=== PATIENT | female | born 1995 | race Caucasian/White ===

== ENCOUNTER 2025-01-01 21:22 | Emergency (ER) | payer MEDICAID ==
[~2025-01-01] VITALS: Ht 160 cm; Wt 71.4 kg
[2025-01-01 21:49] LABS: BASOPHILS # (AUTO) 0.1 X10'3 (0-0.2); BASOPHILS % (AUTO) 0.6 % (0-1); EOSINOPHILS # (AUTO) 0.2 X10'3 (0-0.9); EOSINOPHILS % (AUTO) 2.4 % (0-6); HEMATOCRIT 43.8 % (35.0-45.0); HEMOGLOBIN 14.5 g/dl (12.0-16.0); LYMPHOCYTES # (AUTO) 3.4 X10'3 (1.1-4.8); LYMPHOCYTES % (AUTO) 33.4 % (21-51); MEAN CORPUSCULAR HEMOGLOBIN 27.9 PG (27.0-31.0); MEAN CORPUSCULAR HGB CONC 33.1 g/dL (33.0-36.5); MEAN CORPUSCULAR VOLUME 84.4 FL (78-98); MEAN PLATELET VOLUME 8.7 FL (7.4-10.4); MONOCYTES # (AUTO) 0.6 X10'3 (0-0.9); MONOCYTES % (AUTO) 6.1 % (2-12); NEUTROPHILS # (AUTO) 5.8 X10'3 (1.8-7.7); NEUTROPHILS % (AUTO) 57.5 % (42-75); PLATELET COUNT 315 X10'3 (140-440); RED CELL DISTRIBUTION WIDTH 13.4 % (11.5-14.5); WHITE BLOOD COUNT 10.1 X10'3 (4.5-11.0)
--- NOTE | 2025-01-01 21:59 | Physician Documentation ---
History of Present Illness Chief Complaint: Abdominal Pain Stated Complaint: ABD PAIN HPI This 29-year-old female presents to the ED with a complaint of nausea vomiting x1 day. States some of her symptoms were resolved at this point. Denies any abdominal pain History as above. Patient's pain has greatly improved in his now 08/22. Patient just took plan B and she feels that this may be related to that and she is curious if she is . Took ibuprofen earlier with some relief. Medication Reconciliation Allergies: Coded Allergies: Penicillins (Verified Allergy, Severe, 01/01/25) severe rxn as Review of Systems ROS All review of systems negative except as per HPI Physical Exam Vital Signs: Temperature: 98.4, Source: Temporal, Heart Rate: 72, Respiratory Rate: 14, BP: 109/73, Pulse Oximetry: 100, Weight: 71.400 Physical Exam General: Patient is awake, alert, oriented x4 in no acute distress and well appearing.~ Head: Normocephalic and atraumatic. Eyes: Conjunctival normal. EOMI. PERRL. ENT: Mucous membranes moist. Neck: Supple, trachea is midline. Chest: Clear to auscultation bilaterally without rales, rhonchi, or wheezes. There is no accessory muscle use or retractions. Cardiac: RRR without murmurs, gallops, or rubs. Abd: Soft, nondistended, mildly positive Grace's sign Progress Results/Orders Results/Orders Vital Signs 01/01/25 21:26 Temp 98.4 Pulse 72 Resp 14 B/P (MAP) 109/73 Pulse Ox 100 Laboratory Tests Test 01/01/25 21:38 White Blood Count 10.1 Red Blood Count 5.20 Hemoglobin 14.5 Hematocrit 43.8 Mean Corpuscular Volume 84.4 Mean Corpuscular Hemoglobin 27.9 Mean Corpuscular Hemoglobin Concent 33.1 Red Cell Distribution Width 13.4 Platelet Count 315 Mean Platelet Volume 8.7 Neutrophils (%) (Auto) 57.5 Lymphocytes (%) (Auto) 33.4 Monocytes (%) (Auto) 6.1 Eosinophils (%) (Auto) 2.4 Basophils (%) (Auto) 0.6 Neutrophils # (Auto) 5.8 Lymphocytes # (Auto) 3.4 Monocytes # (Auto) 0.6 Eosinophils # (Auto) 0.2 Basophils # (Auto) 0.1 CBC Comment Chemistry Comments Medical Decision Making Findings Patient presented to the emergency room for evaluation of abdominal pain as per HPI. Differentials include but are not limited to cholecystitis pancreatitis diverticulitis pancreatitis kidney stone therefore emergent labs ordered which were reassuring. Patient's pain is greatly improved. Offered ultrasound however patient would prefer to just go home. He had not feel she requires CT scan as I do not suspect infectious process at this time. Departure Disposition: HOME / SELF CARE / HOMELESS Impression: Primary Impression: Abdominal pain Condition: Improved Discharge Instructions: Abdominal Pain (Nonspecific) Referrals: NO PRIMARY CARE PROVIDER (PCP) Prescriptions Norgestimate-Ethinyl Estradiol (Sprintec 28 Day Tablet) 0.25 Mg-0.035 Mg Tablet 1 TAB PO DAILY, #1 BOXS Prov: RAJESH MORIN MD 01/02/25 Education Educated: Patient Educated regarding: diagnosis, treatment, need for follow up Signature Scribe Signature: g Attestation: The note accurately reflects work and decisions made by me.Rajesh Morin MD 01/02/25 00:36 Scribed for Emergency,Department by Gaby Bundy - [facility] . 01/01/25 23:57 GABY BUNDY NP Jan 01, 2025 21:58 RAJESH MORIN MD Jan 02, 2025 00:37
[2025-01-01 22:00] LABS: ALANINE AMINOTRANSFERASE 24 U/L (12-78); ALBUMIN 4.2 G/DL (3.4-5.0); ALBUMIN/GLOBULIN RATIO 1.2 (1.1-1.5); ALKALINE PHOSPHATASE 63 IU/L (46-116); ANION GAP 8 (8-16); ASPARTATE AMINO TRANSFERASE 16 U/L (10-37); BILIRUBIN,TOTAL 0.6 MG/DL (0.1-1.0); BLOOD UREA NITROGEN 10 MG/DL (7-18); BUN/CREATININE RATIO 10.2 (10.0-20.0); CALCIUM 9.3 MG/DL (8.5-10.1); CHLORIDE 103 MMOL/L (99-107); CREATININE 0.98 MG/DL (0.40-0.90); GLUCOSE 121 MG/DL (70-104); LIPASE 25 U/L (16-77); POTASSIUM 3.6 MMOL/L (3.5-5.1); SODIUM 138 MMOL/L (135-145); TOTAL CARBON DIOXIDE 27.3 MMOL/L (24-32); TOTAL PROTEIN 7.6 G/DL (6.4-8.2); eCRCL 71 ML/MIN; eGFR 68 ML/MIN
[2025-01-01 23:05] LABS: URINE HCG NEGATIVE (NEG)
[2025-01-01 23:08] LABS: BILIRUBIN,URINE NEGATIVE (Neg); CLARITY,URINE CLEAR (Clear); COLOR,URINE YELLOW (Yellow); GLUCOSE, URINE NEGATIVE (Neg); KETONES,URINE NEGATIVE (Neg); LEUKOCYTE ESTERASE ,URINE NEGATIVE (Neg); NITRITES, URINE NEGATIVE (Neg); OCCULT BLOOD,URINE NEGATIVE (Neg); PROTEIN,URINE NEGATIVE (Neg); UROBILINOGEN,URINE 0.2 E.U/dL (0.2-1.0)
[2025-01-01 23:10] LABS: UA COLLECTION TYPE CLN CATCH MIDSTREAM
[2025-01-02 00:14] VITALS: TEMP 98.4
[2025-01-02] MEDS ORDERED: NORG1TAB12 PO (00:36)
[2025-01-02 00:38] VITALS: BP 108/72; PULSE 53; RESP 16; O2SAT 98
== END 2025-01-02 00:43 | disposition home or self-care (01) ==
LOC: ER 21:23
DX: R10.9 Unspecified abdominal pain (principal); R11.2 Nausea with vomiting, unspecified; Z88.0 Allergy status to penicillin
CPT/HCPCS: 36415; 80053; 81003; 81025; 83690; 85025; 99283